=== PATIENT | male | born 1950 | race Caucasian/White ===

== ENCOUNTER 2017-12-09 09:19 | Observation (INO) ==
[~2017-12-09 09:19] MED LIST: LIDOCAINE W/ SODIUM BICARB 0.5 ML SYR ONE; LIDOCAINE W/ SODIUM BICARB 0.5 ML SYR SUBD ONE; Lactated Ringers 1,000 ML PRIMARY IV ONE; ceFAZolin Inj 2gm (Premix) 2 GM/50 ML BAG IV ONE
[2017-12-09] MEDS: Lactated Ringers 1,000 ML PRIMARY IV SCH ×2 (10:08→17:27)
[2017-12-09] MEDS ORDERED: MIDAZOLAM 5 MG/1 ML ONE (11:27)
[2017-12-09] MEDS ORDERED: fentaNYL Inj 250 MCG/5 ML VIAL ONE (11:27)
[2017-12-09] MEDS ORDERED: SUFENTANIL 50 MCG/1 ML ONE (11:27)
[2017-12-09] MEDS ORDERED: LIDOCAINE MPF 2% - 5 ML (20 MG/1 ML) ONE (11:28)
[2017-12-09] MEDS ORDERED: PROPOFOL 10 MG/1 ML (200 MG/20 ML) VIAL IV ONE (11:28)
[2017-12-09] MEDS ORDERED: Sodium Chloride 0.9% vial 10 ML ONE (11:30)
[2017-12-09] MEDS ORDERED: Lactated Ringers 1,000 ML PRIMARY IV ONE (12:24)
[2017-12-09] MEDS ORDERED: NALOXONE 0.4 MG/1 ML VIAL ONE (12:24)
--- NOTE | 2017-12-09 12:42 | EKG ---
[address] [address] Measurements Intervals [place] Rate: 67 P: 48 ID: [id number] QRS: 27 QRSD: 91 T: 7 QT: 416 QTc: 432 Interpretive Statements SINUS RHYTHM No previous ECG available for comparison Electronically Signed On 12-09-17 17:22:05 MDT by Lexx Brooks [email or web address]
[2017-12-09] MEDS ORDERED: LABETALOL 20 MG/4 ML (5 MG/1 ML) SYRINGE ONE (12:55)
[2017-12-09] MEDS: LABETALOL 20 MG/4 ML (5 MG/1 ML) SYRINGE IVP SCH ×3 (12:57→17:32)
--- NOTE | 2017-12-09 13:00 | DI ---
AP CHEST X-RAY, 12/09/2017 12:40 PM : Clinical History: Cardiac changes intraoperatively. Previous Exam: None at this facility. There is no acute soft tissue or bony abnormality. Heart size is normal. Lungs are clear. Mediastinal structures are normal. There are no pulmonary nodules. Reading: Normal chest x-ray.
[2017-12-09 13:08] LABS: BLOOD UREA NITROGEN 16 mg/dL (7-22); BUN/CREATININE RATIO 22.85 (6-20); SERUM ALBUMIN 3.5 g/dL (3.5-4.8)
--- NOTE | 2017-12-09 13:43 | CRNA.PROGR ---
Anesthesia Recovery Phase I - Post Anesthesia Evaluation Patient's Condition on Arrival in Phase I: Fair Patient's Condition on Arrival in Phase II: Stable Pain Level: 0 (continues to have ST seg depression with flattening upon arrival in the PACU)
--- NOTE | 2017-12-09 13:46 | CRNA.PROGR ---
Post Anesthesia Phase II - Post Anesthesia Phase II Patient Stable and Discharged To: Phase II Care Assumed By Surgeon: Osbaldo Molina MD Temperature: 97 F Pulse Rate: 59 Respiratory Rate: 14 Blood Pressure: 163/94 Pulse Ox: 99 Total James Score at Discharge: 10 Post Anesthesia Discharge Criteria Met: Yes Additional Details: Pt being transfred to telemetry for monitoring and cardiac work up with Dr Ayala.
--- NOTE | 2017-12-09 13:48 | ORTHO.OP ---
Surgery Date: 12/09/17 Preoperative Diagnosis: Rotator cuff tear right shoulder Postoperative Diagnosis: Same Procedure: Surgical procedure aborted after intubation due to ST depression Surgeon: Osbaldo Molina MD Automotive Sales Specialist: WILI Martin Anesthesia Provider: Cheikh Manriquez CRNA Anesthesia Type: General Estimated Blood Loss (mL): 0 Fluids: 1400 mL LR Findings: After intubation, anesthesia noted that the patient had ST depression. It was fairly obvious on the monitor. Because of that, the decision was made to abort the procedure and extubate the patient. This was done and the patient was taken to the PACU where he currently resides. He was seen by Dr. Ayala and will be admitted overnight for observation. He will have a cardiac stress test in the morning. The patient and his both understand the reason for canceling the surgery. Operative Summary: Refer to the note as outlined in the findings section.
--- NOTE | 2017-12-09 13:58 | CRNA.PROGR ---
Anesthesia Note - Progress Notes Anesthesia Progress Note: Induction Note Pt chart rev and interview was conducted in the preop area. The patient was taken to room one, positioned supine on the OR bed, monitors were placed and the patient was pre-oxygenated for 3min with SAO2 sustained a 100%. Smooth IV induction, first attempt at intubation was blind and unsuccessful. The patient was then mask ventilated and reposition, second attempt was successful after a difficult intubation, Glottic opening was visible but tissue surrounding the chords appear reddened and inflamed. The patients SAO2 did drop to mid seventies rather quickly during second intubation but quickly returned to 100 percent after a 5 breath ventilation. The ETT was secured and the patient was placed into the beach enrique position with head in the head worker in the neutral position. The patient then began to show changes in the ecg showing ST seg depression of 1-1.5mm changes with flattening. Blood pressure remained stable and heart rate was WNL between 85 and 60. The decision was made to abort the surgery, awaken the patient and return to the recovery room to further evaluate. The patient emerged from general anesthesia with 100% O2, he followed commands suctioned extubated and taken to PACU. VSS.
[2017-12-09] MEDS ORDERED: LIDOCAINE W/ SODIUM BICARB 0.5 ML SYR SUBD PRN (14:06)
--- NOTE | 2017-12-09 14:06 | PDOC ---
HPI - History of Present Illness Date of Service: 12/09/17 Time of Service: 13:00 Chief Complaint: ST changes after anesthesia induction with arrhythmia History of Present Illness: This is a 67 years old male with medical history significant for history of gout , childhood asthma and history of right shoulder pain secondary to right rotator cuff tear who came in today to have surgery by Dr. Molina. After administration of anesthesia they did notice changes in his ST segment on the monitor there was ST depression in lead 2 and they decided to abort the surgery. Patient was taken to the PACU his blood pressure was elevated and he was given labetalol. Once he woke up he denied chest pain or shortness of breath or nausea. He was disappointed because of surgery was canceled. An EKG done did not show the changes that he had when they administered the anesthesia. However it was noted while on the monitor that he was having bigeminy and at times the rhythm was irregular questionable A. fib but that did not last long. The patient himself continued to denied complaint. The hospitalist service were consulted. He said for some reason 5 years ago he was supposed to have a stress test but he got food poisoning and never had that done. Past Medical History Medical History: 1. History of gout. 2. History of childhood asthma. 3. History of for right rotator cuff tear Surgical History: History of carpal tunnel syndrome surgery Pertinent Family History: His biological mother had a pacemaker other than that he doesn't know much. Tobacco Use: Never Smoker In the Past 12 Months, Have Used or Abuse Any of the Following Substance: None Alcohol Use: None Medication / Allergies Home Medications: Home Medications 3 Medication Instructions Recorded Confirmed Type Gluc Bradshaw/Chondro Bradshaw A/Vit C/Mn 1 ea PO DAILY 09/06/10 12/09/17 History [Glucosamine Chondroitin Tab] Cetirizine HCl [Zyrtec] 1 tab PO QD cap 10/03/15 12/09/17 History Sildenafil Citrate [Viagra] Sample #1 #1 Samples 03/29/16 11/03/17 Sample probenecid 500 mg tablet 500 mg PO QD #30 tab 06/24/17 12/09/17 Rx Allergies/Adverse Reactions: Allergies 3 Allergy/AdvReac Type Severity Reaction Status Date / Time Tetanus Vaccines and Toxoid Allergy Severe ANAPHLAXIS Verified 12/09/17 11:26 Review of Systems - Review of Systems All Systems: Reviewed & No Additional Complaints Except as Stated Exam - Vitals Vital Signs: Vital Signs Temperature 97 F Pulse Rate 66 Respiratory Rate 14 Blood Pressure 160/93 Pulse Ox 99 Oxygen Flow Rate 2L Height 5 ft 10 in Weight 267 lb - General General Appearance: No Acute Distress, Cooperative, Obese - Head Head Exam: Normal Inspection, Atraumatic - Eye Eye Exam: POSITIVE: Normal Appearance - ENT ENT Exam: POSITIVE: Normal Exam - Neck Neck Exam: Normal Inspection - Respiratory Respiratory Exam: POSITIVE: Clear to Auscultation - Bilaterally - Cardiovascular Cardiovascular Exam: POSITIVE: RRR - GI/Abdominal GI/Abdominal Exam: POSITIVE: Normal Bowel Sounds, Non Tender, Non Distended, Soft, No Organomegaly - Rectal Rectal Exam: POSITIVE: Deferred - External Exam: POSITIVE: Deferred Exam: POSITIVE: Deferred - Extremities Extremities Exam: POSITIVE: Normal Inspection - Back Back Exam: POSITIVE: Normal Inspection - Neurological Neurological Exam: POSITIVE: Alert, Oriented x 3, CN II-XII Intact, Speech Intact / Clear, Moves All Extremities Equally - Psychiatric Psychiatric Exam: POSITIVE: Normal Affect - Integumentary Integumentary Exam: POSITIVE: Normal Color Results - Labs CBC and BMP: 12/09/17 12:50 - EKG Data -: EKG Interpreted by Me (History inversion in lead 3 but otherwise negative. However on reviewing the monitored rhythm there are ST segment changes with depression in lead two noted.) - Imaging Status: Report Reviewed by Me (Chest x-ray is normal) Assessment and Plan - Patient Problems (1) Atrial bigeminy Current Visit: Yes Status: Acute Comment: This was transient maybe a secondary to stress of the anesthetic. Not clear to me whether he had a true atrial fibrillation. I think will put him on youth nutritional monitor and watch his rhythm overnight. Repeat his cardiac enzymes and do a stress test for him tomorrow. Code(s): I49.8 - Other specified cardiac arrhythmias (2) ST segment changes on electrocardiogram Current Visit: Yes Status: Acute Comment: We'll watch him on telemetry overnight and will do a stress test for him. Code(s): R94.31 - Abnormal electrocardiogram [ECG] [EKG] (3) Hypertension Current Visit: Yes Status: Acute Comment: Blood pressure was elevated at 183/96 and he was given labetalol in the PACU. I think will watch his blood pressure overnight and and depending on his numbers tomorrow will decide if he needs to be treated. Code(s): I10 - Essential (primary) hypertension
--- NOTE | 2017-12-09 14:20 | CRNA.PROGR ---
Anesthesia Time - - Start date: 12/09/17 End date: 12/09/17 - Procedure/Recovery Time Anesthesia : Time In: 11:48 Anesthesia : Time Out: 12:38 Anesthesia : Total Time: 50 - Total Anesthesia Time Total Anesthesia Time (minutes): 50 - Other Weight: 121.109 kg Height: 5 ft 10 in Body Mass Index (BMI): 38.2 Physical Status: P2 Anesthesia Type: General Anesthesia : ET
[2017-12-10] MEDS ORDERED: Naproxen Tab 500 MG TAB PO PRN (07:40)
--- NOTE | 2017-12-10 07:43 | PDOC(PROG) ---
Date and Time of Service: 12/10/2017 7:41 AM Interval History: Subjective No new symptoms apart from pain in the right shoulder which is old. Objective : Data - Labs CBC and BMP: 12/09/17 12:50 Objective : Exam - General General Appearance: No Acute Distress, Cooperative, Obese - Eye Eye Exam: Normal Appearance - ENT ENT Exam: Normal Exam - Neck Neck Exam: Normal Inspection - Respiratory Respiratory Exam: Clear to Auscultation - Bilaterally - Cardiovascular Cardiovascular Exam: RRR - GI/Abdominal GI/Abdominal Exam: Normal Bowel Sounds, Non Tender, Non Distended, Soft, No Organomegaly - Rectal Rectal Exam: Deferred - External Exam: Deferred - Extremities Additional Extremities Exam Details: Deformity of right ankle from previous trauma. - Back Back Exam: Normal Inspection - Neurological Neurological Exam: Alert, Oriented x 3, CN II-XII Intact, No Facial Droop, Speech Intact / Clear - Psychiatric Psychiatric Exam: Normal Affect - Integumentary Integumentary Exam: Normal Color Assessment and Plan - Patient Problems (1) Atrial bigeminy Current Visit: Yes Status: Acute Comment: Seem to be resolved. Code(s): I49.8 - Other specified cardiac arrhythmias (2) ST segment changes on electrocardiogram Current Visit: Yes Status: Acute Comment: This is resolved. The enzymes remain negative. He had the first part of the stress test and will have the second part tomorrow. Code(s): R94.31 - Abnormal electrocardiogram [ECG] [EKG] (3) Hypertension Current Visit: Yes Status: Acute Comment: We'll continue to watch his blood pressure. Blood pressure numbers seem to be trending down. Code(s): I10 - Essential (primary) hypertension
--- NOTE | 2017-12-10 08:01 | STRESSTEST ---
[facility] [place] Interpretive Statements Patient had lexiscan stress test per protocol, baseline EKG showed normal sinus rhythm baseline BP was 124/92, heart rate was 77, post injection patient had some flushing maximum BP was 134/84, heart rate was 77 no EKG changes noted., Conclusion the EKG part of lexiscan stress test did not show significant EKG changes await images. Electronically Signed On 12-10-17 15:17:10 MDT by Ottoniel Murcia MD [email or web address]
[2017-12-10] MEDS ORDERED: LORATADINE 10 MG TABLET PO SCH (09:00)
[2017-12-10] MEDS: PROBENECID 500 MG PO SCH (09:35)
[2017-12-10] MEDS: [UNRECOGNIZED DRUG - REMARK] PO PRN (09:35)
[2017-12-11 07:37] VITALS: RESP 16; O2SAT 95
[2017-12-11] MEDS: PROBENECID 500 MG PO SCH (08:23)
[2017-12-11] MEDS: [UNRECOGNIZED DRUG - REMARK] PO PRN (08:23)
--- NOTE | 2017-12-11 12:46 | DCSUMMARY ---
Hospitalization Summary Admit Date: 12/09/2017 Discharge Date: 12/11/17 Hospital Course: Discharge diagnoses 1. Asymptomatic ST depression 2. Atrial bigeminy 3. Hypertension 4. Arthritis 5. History of gout 6. faint calcifications in either in the left mainstem or proximal LAD Hospital course This is a 67 years old male with medical history significant for history of gout , arthritis who came into the hospital to have right shoulder joint replacement by by Dr. Molina he was giving anesthetic and post induction they noticed ST depression in the lead 2 and atrial bigeminy there was question of Prosper hernandez and the surgery was abandoned. I came in to see him after that he was denying symptoms apart from pain shoulder. He denied history of chest pain or shortness of breath. we Kept him in the hospital. His enzymes remain negative. We did the Lexiscan stress test which per my discussion with the radiologist seemed to be negative. Some calcification in the coronary vessels though. I did speak with the pst specialist Dr. Vargas and he'll see him as an outpatient to see whether he needs further testing like an angiogram. We did notice his blood pressure is borderline elevated so we discharge him after discussion with Dr. Vargas on lisinopril and aspirin. Did explain the potential side effect to the patient. Did suggest to him that he keep a diary of his blood pressure number and presented to his physician and to the pst specialist. Discharge instruction Diet regular Thickness started Medications Current Medication(s) 3 Medication Instructions Recorded Confirmed Type Gluc Bradshaw/Chondro Bradshaw A/Vit C/Mn 1 ea PO DAILY 09/06/10 12/09/17 History [Glucosamine Chondroitin Tab] Cetirizine HCl [Zyrtec] 1 tab PO QD cap 10/03/15 12/09/17 History Sildenafil Citrate [Viagra] Sample #1 #1 Samples 03/29/16 11/03/17 Sample probenecid 500 mg tablet 500 mg PO QD #30 tab 06/24/17 12/09/17 Rx Aspirin [Aspir 81] 81 mg PO DAILY #30 tablet. 12/11/17 Rx Lisinopril 5 mg PO DAILY #30 tab 12/11/17 Rx Follow-up with PCP and Dr. Vargas 1-2 weeks Condition at discharge was stable for discharge Exam - Vitals Vital Signs: Vital Signs Temperature 97.3 F Temperature Source Temporal Artery Scan Pulse Rate [Pulse Oximeter] 49 Pulse Rate 71 Respiratory Rate 16 Blood Pressure [LEFT ARM] 152/86 Blood Pressure 160/93 Pulse Ox 95 Oxygen Flow Rate 1 Oxygen Delivery Method Room Air Height 5 ft 10 in Weight 265 lb 9.6 oz - General General Appearance: No Acute Distress, Cooperative, Obese - Head Head Exam: Normal Inspection - Eye Eye Exam: POSITIVE: Normal Appearance - ENT ENT Exam: POSITIVE: Normal Exam - Neck Neck Exam: Normal Inspection - Respiratory Respiratory Exam: POSITIVE: Clear to Auscultation - Bilaterally - Cardiovascular Cardiovascular Exam: POSITIVE: RRR - GI/Abdominal GI/Abdominal Exam: POSITIVE: Normal Bowel Sounds, Non Tender, Non Distended, Soft, No Organomegaly - Rectal Rectal Exam: POSITIVE: Deferred - External Exam: POSITIVE: Deferred - Extremities Extremities Exam: POSITIVE: Normal Inspection Patient Problems - Patient Problem List (1) Atrial bigeminy Status: Acute Code(s): I49.8 - Other specified cardiac arrhythmias Category : Medical (2) ST segment changes on electrocardiogram Status: Acute Code(s): R94.31 - Abnormal electrocardiogram [ECG] [EKG] Category: Medical (3) Hypertension Status: Acute Code(s): I10 - Essential (primary) hypertension Category: Medical
--- NOTE | 2017-12-11 12:47 | DI ---
2 DAY LEXISCAN STRESS & REST MYOCARDIAL PERFUSION SCANS, 12/10/2017-12/11/2017: Clinical History: ST changes on EKG with arrhythmia. Previous Exam: None at this facility. Monitoring Physician: Dr. Veronica Ayala. Dose: Stress dose: 36 mCi on 12/10/2017. Rest dose: 34 mCi on 12/11/2017. Quantitative Analysis: [employer] program with low dose limited CT chest scan attenuation correctio n. Exam Quality: Excellent for the stress exam and very good for the resting scans. Rejected Beats: Stre ss = 0%; Rest = 18%. HR: Stress = 76-81 b/m; Rest = 61-73 b/m. The technologist indicating the patie nt had frequent coupled beats with compensatory pauses only during the resting scans. Left ventricular chamber sizes are normal at stress and rest. Transient ischemic dilatation ratio is 0.96 (normal Brandt TID <= 1.22; normal Lexiscan TID <= 1.33). Stress LVEF: 72%; rest LVEF: 68%. The n on-attenuated scans show normal perfusion at stress and rest. The attenuated scans show evidence of a pical thinning but are otherwise unremarkable at stress and rest. Stress and rest wall motion and jeremy cardial thickening are normal. Limited CT scans of the heart show faint calcifications probably in th e left mainstem or proximal LAD. There are no lung nodules or enlarged nodes. Readin. Normal stress and rest left ventricular chamber size. Transient ischemic dilatation ratio is norm al at 0.96. 2. Normal stress and rest LVEF values of 72% and 68%, respectively. 3. Normal stress and rest myocardial perfusion on the 9 to an attenuated corrected scans with eviden ce of anatomic apical thinning on the attenuated scans. Stress and rest wall motion and myocardial th ickening are normal. 4. There are faint calcifications in either in the left mainstem or proximal LAD. No pulmonary nodul es are noted and there is no adenopathy. 5. The patient had no arrhythmia during the stress scans, but did develop coupled beats with compens atory pauses during the resting scans.
[2017-12-11 13:08] VITALS: BP 151/78; TEMP 97.2
== END 2017-12-11 13:27 | disposition home or self-care (01) ==
LOC: MED/SURG 09:19 → OR 09:19
PROVIDERS: ADMIT Internal Medicine; ATTEND Orthopaedic Surgery